=== PATIENT | male | born 1940 | race Caucasian/White ===

== ENCOUNTER 2016-05-16 09:49 | Emergency (ER) | payer MEDICARE ==
[2016-05-16 10:16] VITALS: BP 119/71
[2016-05-16] MEDS ORDERED: Ketorolac INJ* 30 MG/ML 1 ML VIAL IM ONE (10:26)
--- NOTE | 2016-05-16 10:34 | UC ---
Hip/Pelvis Pain - HPI Summary HPI Summary: last week patient jumped out of a truck and had a sudden pain in his back and his legs felt weak and rubbery. has had pain and weakness since. has to lift his legs with his hands. they are constantly jumping. - History Of Current Complaint Chief Complaint: UCLowerExtremity Stated Complaint: BILATERAL HIP AND LEG PAIN Time Seen by Provider: 05/16/16 10:19 Hx Obtained From: Patient Onset/Duration: Sudden Onset, Lasting Days Timing: Constant Severity Initially: Moderate Severity Currently: Severe Pain Intensity: 8 Pain Scale Used: 0-10 Numeric Location: Diffuse - pelvis and hips Character Of Pain: Aching, Throbbing, Spasmodic Aggravating Factor(s): Movement, Weight Bearing Alleviating Factor(s): Rest Associated Signs And Symptoms: Positive: Weakness - Allergies/Home Medications Allergies/Adverse Reactions: Allergies Allergy/AdvReac Type Severity Reaction Status Date / Time acetaminophen at high dose Allergy Headache Uncoded 05/16/16 10:17 adhesive Allergy Rash Uncoded 05/16/16 10:18 Home Medications: Home Medications Aspirin TAB* 325 mg PO DAILY 05/16/16 [History Confirmed 05/16/16] PMH/Surg Hx/FS Hx/Imm Hx Previously Healthy: Yes Cardiovascular History Of: Reports: Cardiac Disorders - [place] 2014 - Surgical History Surgical History: None - Family History Known Family History: Negative: Other - cancercolon - Social History Alcohol Use: None Substance Use Type: None Smoking Status (MU): Never Smoked Tobacco - Immunization History Most Recent Influenza Vaccination: NOT THIS [facility] Review of Systems Constitutional: Negative Skin: Negative Eyes: Negative ENT: Negative Respiratory: Negative Cardiovascular: Negative Gastrointestinal: Negative Genitourinary: Negative Motor: Negative Neurovascular: Negative Musculoskeletal: Arthralgia, Decreased ROM, Myalgia Neurological: Negative Psychological: Negative All Other Systems Reviewed And Are Negative: Yes Physical Exam Triage Information Reviewed: Yes Appearance: Well-Appearing, Well-Nourished, Pain Distress Vital Signs: Initial Vital Signs Temp 97.3 F 05/16/16 10:05 Pulse 62 05/16/16 10:05 Resp 18 05/16/16 10:05 BP 119/71 05/16/16 10:05 Pulse Ox 100 05/16/16 10:05 Vital Signs Reviewed: Yes Eye Exam: Normal Eyes: Positive: Conjunctiva Clear ENT Exam: Normal ENT: Positive: Normal ENT inspection, Pharynx normal, TMs normal Dental Exam: Normal Neck exam: Normal Neck: Positive: Supple, Nontender, No Lymphadenopathy Respiratory Exam: Normal Respiratory: Positive: Chest non-tender, Lungs clear, Normal breath sounds Cardiovascular Exam: Normal Cardiovascular: Positive: RRR, No Murmur, Pulses Normal Abdominal Exam: Normal Abdomen Description: Positive: Nontender, No Organomegaly, Soft Bowel Sounds: Positive: Present Musculoskeletal: Positive: No Edema, Strength Limited @, ROM Limited @, Other: - posivite popliteal and pedal pulses bilaterally. no redness or swelling. no calf tenderness. visible jerking of legs noted Neurological Exam: Normal Neurological: Positive: Alert, Muscle Tone Normal Psychological Exam: Normal Skin Exam: Normal Hip Injury Course/Dx - Course Course Of Treatment: hx obtained, exam performed, medications reviewed. hip and back xray ordered, negative fro fractures. and toradol given for pain relief with good results. he is able to stand up now. educated on treatment of muscle strain. - Differential Dx/Diagnosis Differential Diagnosis/HQI/PQRI: Contusion, Dislocation, Fracture, Sciatica, Sprain, Strain Provider Diagnoses: low back strain, bilateral hip flexor strain. Discharge - Discharge Plan Condition: Stable Disposition: HOME Patient Education Materials: Lower Back Exercises (ED), Muscle Strain (ED) Additional Instructions: take it easy. heat, stretch and take the naproxen as prescribed twice a day for the next week then as needed. follow up with any increase in pain
--- NOTE | 2016-05-16 11:06 | RAD ---
INDICATION: Bilateral leg weakness and pain. COMPARISON: There are no prior studies available for comparison. TECHNIQUE: 3 views of the lumbar spine were obtained including lateral, AP and a coned-down lateral view of the lumbar sacral junction. FINDINGS: The vertebra are in normal alignment. No fracture is seen. There is [id number] disc space narrowing and endplate hypertrophic changes at all lumbar levels consistent with mild to moderate degenerative disc disease. IMPRESSION: MILD TO MODERATE DIFFUSE DEGENERATIVE DISC DISEASE.
--- NOTE | 2016-05-16 11:06 | RAD ---
Indication: Bilateral leg weakness. Single view the pelvis demonstrates sacroiliac joints and hip joints to be intact. No fracture is identified. IMPRESSION: No fracture of either hip is noted.
== END 2016-05-16 11:39 | disposition home or self-care (01) ==
LOC: UCCORT 09:49
DX: S39.012A Strain of muscle, fascia and tendon of lower back, initial encounter (principal); S76.012A Strain of muscle, fascia and tendon of left hip, initial encounter; S76.011A Strain of muscle, fascia and tendon of right hip, initial encounter; V58.1XXA Passenger in pick-up truck or van injured in noncollision transport accident in nontraffic accident, initial encounter; M62.81 Muscle weakness (generalized); Z88.6 Allergy status to analgesic agent; Z91.09 Other allergy status, other than to drugs and biological substances; I25.2 Old myocardial infarction
CPT/HCPCS: 72100; 72170; 96372; 99212; G0463; J1885

== ENCOUNTER 2016-06-16 12:10 | Emergency (ER) | payer MEDICARE ==
[2016-06-16 13:36] VITALS: BP 120/74
--- NOTE | 2016-06-16 14:14 | UC ---
Upper Extremity HPI - HPI Summary HPI Summary: The patient comes in today for: 1. Left arm pain: Onset: 6 weeks Palliative/provocative: Moving the arm makes it worse. Quality: Ache Region: Left shoulder. Severity: 7/10 Time: Movement makes it worse. Associated symptoms: Previous treatment: He came here at [facility] for evaluation around early May. He states that they told him that he has arthritis of both shoulders and hips. He was give Naproxen which was 250 mg and taken bid. He has run out and would like some more. He has no primary care provider and no x-rays of his shoulders. Kidney disease: None Stomach disease: None. Injury: None. * - History of Current Complaint Chief Complaint: UCUpperExtremity Stated Complaint: MED REFILL Time Seen by Provider: 06/16/16 13:58 Hx Obtained From: Patient ?: No - Allergies/Home Medications Allergies/Adverse Reactions: Allergies Allergy/AdvReac Type Severity Reaction Status Date / Time acetaminophen at high dose Allergy Headache Uncoded 06/16/16 13:36 adhesive Allergy Rash Uncoded 06/16/16 13:36 PMH/Surg Hx/FS Hx/Imm Hx Previously Healthy: No Endocrine History Of: Denies: Diabetes, Thyroid Disease, Hyperthyroidism, Hypothyroidism, Dyslipidemia Cardiovascular History Of: Reports: Cardiac Disorders - [place] 2013 Denies: Hypertension, Pacemaker/ICD, Myocardial Infarction, Congestive Heart Failure, Atrial Fibrillation, Deep Vein Thrombosis, Bleeding Disorders Respiratory History Of: Denies: COPD, Asthma, Bronchitis, Pneumonia, Pulmonary Embolism GI/ History Of: Denies: Gastroesophageal Reflux, Ulcer, Gastrointestinal Bleed, Gall Bladder Disease, Kidney Stones, Diverticulitis, Renal Disease, Urosepsis Neurological History Of: Denies: TIA, CVA, Dementia, Seizures, Migraine Psychological History Of: Denies: Anxiety, Depression, Bipolar Disorder, Schizophrenia, Post Traumatic Stress Disorder Cancer History Of: Denies: Lung Cancer, Colorectal Cancer, Breast Cancer, Prostate Cancer, Cervical Cancer Other History Of: Anticoagulant Therapy - aspirin daily. Negative For: HIV, Hepatitis B, Hepatitis C - Surgical History Surgical History: None - Family History Known Family History: Positive: Cardiac Disease, Hypertension Negative: Other - cancercolon - Social History Occupation: Unemployed Alcohol Use: None Substance Use Type: None Smoking Status (MU): Never Smoked Tobacco - Immunization History Most Recent Influenza Vaccination: NOT THIS [facility] Review of Systems Constitutional: Negative Skin: Negative Eyes: Negative ENT: Negative Respiratory: Negative Cardiovascular: Negative Gastrointestinal: Negative Genitourinary: Negative Musculoskeletal: Arthralgia, Myalgia All Other Systems Reviewed And Are Negative: Yes Physical Exam Triage Information Reviewed: Yes Appearance: Well-Appearing, No Pain Distress, Well-Nourished Vital Signs: Initial Vital Signs Temp 98.1 F 06/16/16 13:32 Pulse 67 06/16/16 13:32 Resp 14 06/16/16 13:32 BP 120/74 06/16/16 13:32 Pulse Ox 99 06/16/16 13:32 Vital Signs Reviewed: Yes Eyes: Positive: Conjunctiva Clear. Negative: Discharge ENT: Positive: Hearing grossly normal. Negative: Pharyngeal erythema, Nasal congestion, Nasal drainage, TM bulging, TM dull, TM red, Tonsillar swelling Dental: Negative: Gross Decay/Caries @, Dental Fracture @ Neck: Positive: Supple, Nontender, No Lymphadenopathy. Negative: Nuchal Rigidity Respiratory: Positive: Lungs clear, No respiratory distress, No accessory muscle use. Negative: Crackles, Wheezing, Expiration Cardiovascular: Positive: RRR, No Murmur Abdomen Description: Positive: Nontender, No Organomegaly, Soft. Negative: Distended, Guarding Musculoskeletal: Positive: ROM Limited @, Other: - Left shoulder: The has very limited movement. He mostly keeps it at his side. Abduction anteriorly or laterally will lead to pain. He only has a few degrees of movement. There is no erythema or edema around the shoulder. There is no ecchymosis. There was minimal tenderness to palpation. NVI.. Negative: Edema @ Neurological: Positive: Alert, Muscle Tone Normal Psychological: Positive: Normal Response To Family, Age Appropriate Behavior, Consolable Skin: Negative: rashes, breakdown Diagnostics - Laboratory Diagnostic Studies Completed/Ordered: shoulder x-ray (left): - Radiology No standard instances Xray Interpretation: Positive (See Comments) - Mild osteoarthritis Radiology Interpretation Completed By: Radiologist Upper Extremity Course/Dx - Differential Dx/Diagnosis Provider Diagnoses: osteoarthritis of the right shoulder. Adhesive capsilitis ( left) Discharge - Discharge Plan Condition: Stable Disposition: HOME Patient Education Materials: Adhesive Capsulitis (ED)
--- NOTE | 2016-06-16 14:49 | RAD ---
Indication: 2 months chronic LEFT shoulder pain anterolateral. Distal radiation. Increased pain with abduction. No preceding injury. Comparison: None. Technique: Internal and external rotation AP and scapular Y views LEFT shoulder Report: Normal acromioclavicular and glenohumeral joint alignment. Mild acromioclavicular and glenohumeral joint osteophytosis. Mild subchondral sclerosis at the glenoid. Negative for fracture, focal osseous lesion, stigmata of calcific tendinopathy, or abnormal soft tissue contour. IMPRESSION: Mild acromioclavicular and glenohumeral joint osteoarthritis.
== END 2016-06-16 15:01 | disposition home or self-care (01) ==
LOC: UCCORT 12:10
DX: M75.02 Adhesive capsulitis of left shoulder (principal); M19.011 Primary osteoarthritis, right shoulder; Z79.82 Long term (current) use of aspirin
CPT/HCPCS: 99212; G0463